=== PATIENT | female | born 1950 | race Caucasian/White ===

== ENCOUNTER 2016-10-29 05:49 | Day surgery (SDC) | payer OTHER ==
[~2016-10-29] VITALS: Ht 167.6 cm; Wt 94.3 kg
[2016-10-29 07:22] VITALS: Ht 167.6 cm; Wt 94.3 kg
[2016-10-29] MEDS ORDERED: HYD25 PO (07:29)
[2016-10-29] MEDS ORDERED: IBUP200C11 PO (07:29)
[2016-10-29] MEDS ORDERED: GABA300C16 PO (07:29)
[2016-10-29] MEDS ORDERED: ASPI81TA3 PO (07:29)
[2016-10-29 08:02] VITALS: BP 137/65; PULSE 64; RESP 20
[2016-10-29] MEDS ORDERED: LIDOCAINE 2% (SDV) 5 ML INJ ONE (08:02)
[2016-10-29] MEDS ORDERED: PROPOFOL 40 ML ONE (08:02)
[2016-10-29 09:05] VITALS: BP 133/72; PULSE 56; RESP 15
--- NOTE | 2016-10-30 09:21 | GILP ---
DATE OF PROCEDURE: PROCEDURE PERFORMED: Colonoscopy with biopsy. INDICATION: A 66-year-old female undergoing this procedure for screening colonoscopy. The risks of the procedure, related and unrelated complications, anesthetic risks, alternatives discussed and in formed consent was obtained. DESCRIPTION OF PROCEDURE: The patient was brought to the GI lab, sedated by Dr. Nick. After opti mum sedation, digital examination done, which was normal. Sphincter tone was normal. No mass was f elt. Scope was passed with much ease into rectum and advanced through sigmoid, descending, transver se colon all the way into the cecum. While coming out, mucosa thoroughly inspected. The rest of th e colon was normal. Terminal ileum appeared normal. There was a polyp identified at 25 cm which wa s flat, 1 cm in diameter, successfully removed by suction and cold snare technique. There was anoth er polyp at 20 cm. Initially we used cold snare. The loop of the snare did go through the base of the polyp, but the polyp was still attached so we used the biopsy forceps to remove that and sent it for further analysis. Retroversion done. Small hemorrhoids identified. Scope was straightened ou t and removed with good patient tolerance. IMPRESSION: 1. Normal finding all the way into cecum except 2 polyps successfully removed by cold snare techniq ue and biopsy as described. One was at 25 cm, a 1 cm in diameter, totally flat. 2. Diminutive polyp in the rectum. 3. Hemorrhoids, small in size. 4. Normal terminal ileum. 5. Clarity and cleanliness was good. 6. Digital exam was totally normal. PLAN: Stay on high fiber diet. Will review the histopathology of the polyp and based on the histop ath, we will decide regarding timing of colonoscopy. Dictated By: TAM COREA/ODELL Conf#: [id number] DID#: [id number]
== END 2016-10-29 11:12 | disposition home or self-care (01) ==
LOC: GIL 05:49 → MERGE 05:49 → GIL 11:12
PROVIDERS: ATTEND Internal Medicine Gastroenterology
DX: Z12.11 Encounter for screening for malignant neoplasm of colon (principal); D12.5 Benign neoplasm of sigmoid colon; K64.9 Unspecified hemorrhoids
CPT/HCPCS: 88305

== ENCOUNTER → 2017-10-07 | Outpatient (CLI) | END | disposition home or self-care (01) ==

== ENCOUNTER → 2017-12-16 | Outpatient (CLI) | END | disposition home or self-care (01) ==

== ENCOUNTER → 2018-04-12 | Outpatient (CLI) | END | disposition home or self-care (01) ==

== ENCOUNTER 2018-04-13 07:31 | Inpatient (IN) | END 2018-04-14 13:51 | disposition home health service (06) | DRG 470 ==

== ENCOUNTER → 2018-05-03 | Outpatient (CLI) | END | disposition home or self-care (01) ==

== ENCOUNTER → 2018-05-26 | Outpatient (CLI) | END | disposition home or self-care (01) ==

== ENCOUNTER → 2018-07-15 | Outpatient (CLI) | END | disposition home or self-care (01) ==

== ENCOUNTER → 2018-10-13 | Outpatient (CLI) | END | disposition home or self-care (01) ==

== ENCOUNTER 2019-04-07 05:00 | Emergency (ER) | payer OTHER ==
[~2019-04-07] VITALS: Ht 162.6 cm; Wt 96.4 kg
[~2019-04-07 05:00] MED LIST: ALEN70TA5 PO; ATOR20TA38 PO; GABA300C16 PO; HYDR25TA6 PO; NAPR500T8 PO; QUIN20TA23 PO
[2019-04-07 05:02] VITALS: BP 159/74; PULSE 74; RESP 18; Ht 162.6 cm; Wt 96.4 kg
[2019-04-07] MEDS ORDERED: morphine 4 MG/ML VIAL IM STA (05:25)
--- NOTE | 2019-04-07 05:27 | ERD ---
ER Documentation Chief Complaint Chief Complaint LOW BACK PAIN; NO KNOWN INJ; NO OTHER S/S-NO URINARY S/S [id number] HPI This is a 68-year-old female who presents here in the emergency department with complaints of left lower back pain that radiates to the left lower extremity. Stated that the pain is been going on and off for about couple of months. LMP: Denies headache, head injury, loss of consciousness, dizziness, neck pain, neck stiffness, throat pain, difficulty swallowing, difficulty breathing lying flat, shoulder pain, chest pain, abdominal pain, nausea, vomiting, constipation, diarrhea, urinary symptoms, or possibility being , loss of bowel and bladder control, trauma, injury, falls, difficulty walking due to pain, numbness or tingling sensation, calf pain, recent travel, recent major surgery in the last 3 weeks, calf pain, recent long travel, recent exposure to any illness, recent antibiotic use in the last 3 months, fever, chills, seizures. Past medical history: Surgical history: Social: Denies smoking, use of alcoholic beverages, use of illegal drugs. ROS All systems reviewed and are negative except as per history of present illness. Medications Home Meds Active Scripts Cyclobenzaprine Hcl* (Cyclobenzaprine Hcl*) 10 Mg Tablet, 10 MG PO TID PRN for MUSCLE SPASMS, #15 TAB Prov:LEIGHA JUAREZ 04/07/19 Omeprazole* (Omeprazole*) 40 Mg Capsule.dr, 40 MG PO DAILY, #30 CAP Prov:ELVERJOSEREJITANNA Davison 04/07/19 Ibuprofen* (Motrin*) 800 Mg Tab, 800 MG PO Q8 PRN for PAIN AND OR ELEVATED TEMP, #20 TAB Prov:LEIGHA JUAREZ 04/07/19 Reported Medications Alendronate Sodium* (Fosamax*) 70 Mg Tablet, 70 MG PO EVERY WEDNESDAY, #4 TAB 04/13/18 Hydrochlorothiazide* (Hydrochlorothiazide*) 25 Mg Tab, 25 MG PO DAILY, #30 TAB 04/13/18 Gabapentin* (Gabapentin*) 300 Mg Capsule, 300 MG PO DAILY, #60 CAP 04/13/18 Atorvastatin Calcium* (Atorvastatin Calcium*) 20 Mg Tablet, 20 MG PO QHS, #30 T AB 04/13/18 Quinapril Hcl (Quinapril Hcl) 20 Mg Tablet, 20 MG PO DAILY, #30 TAB 04/13/18 Naproxen* (Naproxen EC*) 500 Mg Tablet.dr, 500 MG PO BID PRN for PAIN AND/OR INFLAMMATION, TAB 04/13/18 Allergies Allergies: Coded Allergies: No Known Allergy (Unverified , 04/13/18) PMhx/Soc History of Surgery: Yes (LEFT KNEE OPA PMM, KIDNEY STONES REMOVAL) Anesthesia Reaction: No Hx Neurological Disorder: No Hx Respiratory Disorders: No Hx Cardiac Disorders: Yes (HTN,HLP) Hx Psychiatric Problems: No Hx Miscellaneous Medical Probl: Yes (see PT eval) Hx Alcohol Use: No Hx Substance Use: No Hx Tobacco Use: No Smoking Status: Never smoker Physical Exam Vitals Vital Signs Date Temp Pulse Resp B/P (MAP) Pulse Ox O2 O2 Flow FiO2 Time Delivery Rate 04/07/19 97.5 05:45 04/07/19 98.4 74 18 159/74 96 05:02 (102) Physical Exam Const: No acute distress Head: Atraumatic Eyes: Normal Conjunctiva ENT: Normal External Ears, Nose and Mouth. Neck: Full range of motion. No meningismus. Resp: Clear to auscultation bilaterally Cardio: Regular rate and rhythm, no murmurs Abd: Soft, non tender, non distended. Normal bowel sounds. Negative Sutton sign. Negative Bobby sign (heel jar test). Negative psoas sign. Negative Rovsing sign. No CVA tenderness. Skin: No petechiae or rashes. No vesicular lesions. Color appears normal for ethnicity. No skin tenting. No signs of severe dehydration. Back: No midline or flank tenderness. C-spine/T-spine/L-spine are midline with good and full range of motion and is no swelling/bulging/discoloration/point of tenderness. Positive left straight leg test. Positive left cross straight leg test. Negative right straight leg test. Negative right cross right straight leg test. Bilateral hips are stable and unremarkable. No saddle anesthesia. No neurovascular deficits. Ambulatory with steady gait. Ext: No cyanosis, or edema. Bilateral knees: Symmetrical. No deformities. No swelling. Good and full range of motion. No calf tenderness bilaterally. Capillary refills to bilateral lower extremities are less than 2 seconds. Sensation is intact. No neurovascular deficits. Ambulatory with walker (chronic use of walker). Neur: Awake and alert. No neurological deficits. Psych: Normal Mood and Affect Results 24 hrs Current Medications Medications Dose Sig/Sruthi Start Time Status Last (Trade) Ordered Route PRN Stop Time Admin Dose Reason Admin 10 mg ONCE ONCE 04/07/19 DC 04/07/19 Dexamethasone IM 05:30 05:39 (Decadron) 04/07/19 05:31 Morphine 4 mg ONCE STAT 04/07/19 DC 04/07/19 Sulfate IM 05:25 05:39 (morphine) 04/07/19 05:26 Procedures/MDM Diagnostic tests: Clinical exam. I offered diagnostic tests but patient strong ly refused. Treatment: Morphine. Dexamethasone. Re-evaluation: Denies back pain. No saddle anesthesia. No neurovascular def icits. Sensation is intact. No neurological deficits. Ambulatory ambulates with walker (on wheels). Stated that she has been using his walker for a very long time. Differential diagnosis I have low suspicion for nephrolithiasis, pyelonephritis, kidney stones, AAA, compartment syndrome, displaced fracture, hip fracture, DVT. Final diagnosis: Sciatica. Prescription: Motrin. Omeprazole. Flexeril. Follow-up with PCP in the next 24-48 hours. Come back here in the emergency department for any new symptoms or any worsening symptoms. All questions and concerns were answered. Patient and family members verbalized understanding and agreed with plan of care. Hemodynamically stable on discharge. Departure Diagnosis: Primary Impression: Sciatica Condition: Stable Additional Instructions: Follow-up with PCP in the next 24-48 hours. Come back here in the emergency department for any new symptoms or any worsening symptoms. LEIGHA JUAREZ Apr 07, 2019 05:27
[2019-04-07] MEDS ORDERED: IBUP800T48 PO (05:28)
[2019-04-07] MEDS ORDERED: OMEP40CA6 PO (05:28)
[2019-04-07] MEDS ORDERED: CYCL10TA7 PO (05:29)
[2019-04-07] MEDS ORDERED: DEXAMETHASONE 10 MG/ML 1 ML INJ IM ONE (05:30)
== END 2019-04-07 05:46 | disposition home or self-care (01) ==
LOC: FTE 05:00
DX: M54.42 Lumbago with sciatica, left side (principal); I10 Essential (primary) hypertension
CPT/HCPCS: 96372; 99284; J1100; J2270